=== PATIENT | female | born 1945 | race Caucasian/White ===

== ENCOUNTER 2023-08-16 22:11 | Inpatient (IN) | payer MEDICARE, OTHER ==
[~2023-08-16] VITALS: Ht 152.4 cm; Wt 77.1 kg
[2023-08-16] MEDS ORDERED: ROPI1TAB6 PO (22:51)
[2023-08-16] MEDS ORDERED: SIME80TA15 PO (22:51)
[2023-08-16] MEDS ORDERED: METO25TA6 PO (22:51)
[2023-08-16] MEDS ORDERED: CYAN100T44 PO (22:51)
[2023-08-16] MEDS ORDERED: PREG200C PO (22:51)
[2023-08-16] MEDS ORDERED: SIMV-46 PO (22:51)
[2023-08-16] MEDS ORDERED: FAMO-132 PO (22:51)
[2023-08-16] MEDS ORDERED: MAGN400O6 PO (22:51)
[2023-08-16] MEDS ORDERED: ASPI81TA31 PO (22:51)
[2023-08-16] MEDS ORDERED: LEVO88TA5 PO (22:51)
[2023-08-16] MEDS ORDERED: ALEN70TA80 PO (22:51)
[2023-08-16] MEDS ORDERED: TRAZ-257 PO (22:51)
[2023-08-16] MEDS ORDERED: MELA10TA2 PO (22:51)
[2023-08-16] MEDS ORDERED: ONDA-104 PO (22:51)
[2023-08-16] MEDS ORDERED: ROPI2TAB7 PO (22:51)
[2023-08-16] MEDS ORDERED: OXYC-128 PO (22:51)
[2023-08-16] MEDS ORDERED: OXYC1TAB12 PO (22:51)
[2023-08-16] MEDS ORDERED: SENN8.6T19 PO (22:51)
[2023-08-16] MEDS ORDERED: DULO30CA2 PO (22:51)
[2023-08-16] MEDS ORDERED: POLY17PO4 PO (22:51)
[2023-08-16] MEDS ORDERED: ASCO500C18 PO (22:51)
[2023-08-16] MEDS ORDERED: LISI-782 PO (22:51)
[2023-08-16] MEDS ORDERED: LACT10SO58 PO (22:51)
[2023-08-16 22:55] LABS: BASOPHILS # (AUTO) 0.1 K/UL (0.0-0.2); BASOPHILS % (AUTO) 1.3 % (0.0-2.0); DIFFERENTIAL COMMENT 0; EOSINOPHILS # (AUTO) 0.2 K/uL (0.0-0.7); EOSINOPHILS % (AUTO) 2.7 % (0.0-7.0); HEMOGLOBIN 13.6 g/dL (10.9-14.3); LYMPHOCYTES # (AUTO) 2.6 K/uL (0.8-4.8); LYMPHOCYTES % (AUTO) 28.1 % (20.5-51.5); MEAN CORPUSCULAR HGB CONC 32 g/dL (32.3-35.6); MEAN CORPUSCULAR VOLUME 80.6 fL (75.5-95.3); MONOCYTES % (AUTO) 10.4 % (0.0-11.0); NEUTROPHILS # (AUTO) 5.4 K/uL (1.8-8.9); NEUTROPHILS % (AUTO) 57.5 % (38.5-71.5); PLATELET COUNT (AUTO) 246 K/uL (179-408); RED BLOOD CELL COUNT(AUTO) 5.21 MIL/uL (3.63-4.92); RED CELL DISTRIBUTION WIDTH 24.4 % (12.3-17.7); WHITE BLOOD COUNT (AUTO) 9.4 K/uL (3.8-11.8)
[2023-08-16 22:57] LABS: CALCIUM 10.4 mg/dL (8.5-10.1); CARBON DIOXIDE 31 mmol/L (21-32); CHLORIDE 100 mmol/L (98-107); CREATININE 0.7 mg/dL (0.6-1.3); GLUCOSE 129 mg/dL (74-106); POTASSIUM 5.3 mmol/L (3.5-5.1); SODIUM SERUM 137 mmol/L (136-145); UREA NITROGEN, BLOOD 16 mg/dL (7-18)
[2023-08-16 23:11] LABS: ALANINE AMINOTRANSFERASE 19 U/L (14-59); ALKALINE PHOSPHATASE 30 U/L (50-136); ASPARTATE AMINOTRANSFERASE 34 U/L (15-37); BILIRUBIN,DIRECT < 0.1 mg/dL (0.0-0.2); BILIRUBIN,TOTAL 0.3 mg/dL (0.2-1.0); NT-PRO BNP 50 pg/mL (0-125); TOTAL PROTEIN, SERUM 6.8 g/dL (6.4-8.2)
[2023-08-16] MEDS ORDERED: MAG HYDROX/AL HYDROX/SIMETH 30 ML LIQUID UDC PO ONE (23:15)
[2023-08-16] MEDS ORDERED: LIDOCAINE VISCUS 2% 15 ML UDC MM ONE (23:15)
[2023-08-17] MEDS ORDERED: LIDOCAINE VISCUS 2% 15 ML UDC ONE
[2023-08-17] MEDS ORDERED: MAG HYDROX/AL HYDROX/SIMETH 30 ML LIQUID UDC ONE (00:01)
[2023-08-17] MEDS ORDERED: DEXTROSE 50% 50 ML DISP.SYRIN IV PRN (00:30)
[2023-08-17] MEDS ORDERED: MIRALAX 17 GM POWD.PACK PO PRN (00:30)
[2023-08-17] MEDS ORDERED: TRAZODONE 100 MG TABLET PO SCH ×2 (00:30→21:00)
[2023-08-17] MEDS ORDERED: ONDANSETRON 4 MG/2 ML VIAL IV PRN (00:30)
[2023-08-17] MEDS ORDERED: SIMVASTATIN 20 MG TABLET PO SCH (00:30)
[2023-08-17] MEDS ORDERED: ACETAMINOPHEN 325 MG TABLET PO PRN (00:30)
[2023-08-17] MEDS ORDERED: LEVOTHYROXINE SODIUM 88 MCG TABLET ONE (07:51)
[2023-08-17] MEDS: LEVOTHYROXINE SODIUM 88 MCG TABLET PO SCH (07:55)
[2023-08-17] MEDS: BLOOD SUGAR DIAGNOSTIC 1 EACH STRIP VI SCH ×4 (08:07→20:42)
[2023-08-17] MEDS: INSULIN REGULAR, HUMAN 300 UNIT/3 ML VIAL SQ PRN ×2 (08:16→14:04)
[2023-08-17] MEDS ORDERED: ENOXAPARIN SODIUM 40 MG/0.4 ML DISP.SYRIN SQ ONE (08:43)
[2023-08-17] MEDS ORDERED: CYANOCOBALAMIN 1,000 MCG TABLET ONE (08:43)
[2023-08-17] MEDS ORDERED: FAMOTIDINE 20 MG TABLET ONE (08:43)
[2023-08-17] MEDS ORDERED: ASCORBIC ACID 500 MG TABLET ONE (08:44)
[2023-08-17] MEDS ORDERED: ASPIRIN 81 MG TAB.CHEW ONE (08:44)
[2023-08-17] MEDS: ENOXAPARIN SODIUM 40 MG/0.4 ML DISP.SYRIN SQ SCH (08:51)
[2023-08-17] MEDS: ASPIRIN 81 MG TAB.CHEW PO SCH (08:51)
[2023-08-17] MEDS: ASCORBIC ACID 500 MG TABLET PO SCH (08:51)
[2023-08-17] MEDS: CYANOCOBALAMIN 1,000 MCG TABLET PO SCH (08:52)
[2023-08-17] MEDS: DULOXETINE 30 MG CAPSULE.DR PO SCH ×2 (08:52→17:21)
[2023-08-17] MEDS: FAMOTIDINE 20 MG TABLET PO SCH (08:52)
[2023-08-17] MEDS ORDERED: CYANOCOBALAMIN 100 MCG TABLET PO SCH (09:00)
[2023-08-17] MEDS ORDERED: SIMETHICONE 80 MG TAB.CHEW PO PRN (12:43)
[2023-08-17] MEDS: METOPROLOL TARTRATE 25 MG TABLET PO SCH (13:00)
[2023-08-17] MEDS: ropiniROLE 1 MG TABLET PO SCH ×3 (15:30→20:42)
[2023-08-17] MEDS ORDERED: OXYCODONE/APAP 5-325 MG TABLET ONE (15:31)
[2023-08-17] MEDS: OXYCODONE/APAP 5-325 MG TABLET PO PRN ×2 (15:35→20:41)
[2023-08-17] MEDS ORDERED: ropiniROLE 1 MG TABLET PO SCH (18:00)
[2023-08-17 19:21] VITALS: BP 147/48; TEMP 97.9; O2SAT 91
[2023-08-17 20:15] VITALS: BP 99/48; TEMP 98.2; O2SAT 95
[2023-08-17] MEDS ORDERED: IV NORMAL SALINE 500 ML BAG IV ONE (20:30)
[2023-08-17] MEDS: SENNOSIDES 1 TABLET PO SCH ×2 (20:39→20:41)
[2023-08-17] MEDS: SIMVASTATIN 20 MG TABLET PO SCH ×2 (20:40→20:41)
[2023-08-17] MEDS ORDERED: MELATONIN 3 MG TABLET PO SCH (21:00)
[2023-08-18 00:10] VITALS: BP 96/46; TEMP 98.3; O2SAT 95
[2023-08-18 04:10] VITALS: BP 133/56; TEMP 98.3; O2SAT 93
[2023-08-18] MEDS: LEVOTHYROXINE SODIUM 88 MCG TABLET PO SCH (06:16)
[2023-08-18 07:07] LABS: BASOPHILS # (AUTO) 0.1 K/UL (0.0-0.2); BASOPHILS % (AUTO) 1.1 % (0.0-2.0); EOSINOPHILS # (AUTO) 0.2 K/uL (0.0-0.7); EOSINOPHILS % (AUTO) 2.6 % (0.0-7.0); HEMATOCRIT 41.6 % (31.2-41.9); HEMOGLOBIN 13.3 g/dL (10.9-14.3); LYMPHOCYTES # (AUTO) 1.3 K/uL (0.8-4.8); LYMPHOCYTES % (AUTO) 20.2 % (20.5-51.5); MEAN CORPUSCULAR HEMOGLOBIN 25.7 uug (24.7-32.8); MEAN CORPUSCULAR HGB CONC 32 g/dL (32.3-35.6); MEAN CORPUSCULAR VOLUME 80.4 fL (75.5-95.3); MONOCYTES # (AUTO) 0.7 K/uL (0.1-1.30); MONOCYTES % (AUTO) 10.2 % (0.0-11.0); NEUTROPHILS # (AUTO) 4.3 K/uL (1.8-8.9); NEUTROPHILS % (AUTO) 65.9 % (38.5-71.5); PLATELET COUNT (AUTO) 229 K/uL (179-408); RED BLOOD CELL COUNT(AUTO) 5.17 MIL/uL (3.63-4.92); RED CELL DISTRIBUTION WIDTH 23.6 % (12.3-17.7); WHITE BLOOD COUNT (AUTO) 6.6 K/uL (3.8-11.8)
[2023-08-18 07:20] LABS: DIFFERENTIAL COMMENT 1
[2023-08-18 07:32] LABS: ALANINE AMINOTRANSFERASE 17 U/L (14-59); ALBUMIN 3.1 g/dL (3.4-5.0); ALKALINE PHOSPHATASE 31 U/L (50-136); ASPARTATE AMINOTRANSFERASE 11 U/L (15-37); BILIRUBIN,TOTAL 0.3 mg/dL (0.2-1.0); CALCIUM 9.4 mg/dL (8.5-10.1); CARBON DIOXIDE 30 mmol/L (21-32); CHLORIDE 104 mmol/L (98-107); CHOLESTEROL 170 mg/dL (<200); CREATININE 0.6 mg/dL (0.6-1.3); GLUCOSE 143 mg/dL (74-106); HDL CHOLESTEROL 50 mg/dL (40-60); MAGNESIUM 1.8 mg/dL (1.8-2.4); PHOSPHOROUS 3.7 mg/dL (2.5-4.9); POTASSIUM 3.7 mmol/L (3.5-5.1); SODIUM SERUM 141 mmol/L (136-145); TOTAL PROTEIN, SERUM 6.4 g/dL (6.4-8.2); TRIGLYCERIDES 192 MG/DL (30-150); UREA NITROGEN, BLOOD 11 mg/dL (7-18)
[2023-08-18] MEDS: BLOOD SUGAR DIAGNOSTIC 1 EACH STRIP VI SCH ×2 (07:40→11:51)
[2023-08-18 08:00] VITALS: BP 158/57; TEMP 98.5; O2SAT 97
[2023-08-18] MEDS: FAMOTIDINE 20 MG TABLET PO SCH (08:50)
[2023-08-18] MEDS: DULOXETINE 30 MG CAPSULE.DR PO SCH (08:50)
[2023-08-18] MEDS: ASCORBIC ACID 500 MG TABLET PO SCH (08:50)
[2023-08-18] MEDS: ASPIRIN 81 MG TAB.CHEW PO SCH (08:51)
[2023-08-18] MEDS: CYANOCOBALAMIN 1,000 MCG TABLET PO SCH (08:51)
[2023-08-18] MEDS: METOPROLOL TARTRATE 25 MG TABLET PO SCH (08:55)
[2023-08-18] MEDS: ENOXAPARIN SODIUM 40 MG/0.4 ML DISP.SYRIN SQ SCH (08:58)
[2023-08-18 10:41] VITALS: BP 124/49; TEMP 98; O2SAT 93
[2023-08-18] MEDS ORDERED: GABAPENTIN 100 MG CAPSULE PO SCH (11:45)
[2023-08-18] MEDS: OXYCODONE/APAP 5-325 MG TABLET PO PRN (12:11)
[2023-08-18] MEDS ORDERED: LISINOPRIL 5 MG TABLET PO SCH (21:00)
[2023-08-22] MEDS ORDERED: ALENDRONATE SODIUM 70 MG TABLET PO SCH (07:00)
== END 2023-08-18 15:40 | DRG 303 ==
LOC: ER 22:17 → TRANSITION 08-17 07:00 → UNDOADMIN 08-17 07:00 → TELE3 08-17 17:30 → MEDSURG3 08-18 08:35
PROVIDERS: ADMIT Nurse Practitioner Acute Care; ATTEND Nurse Practitioner Acute Care
DX: I25.110 Atherosclerotic heart disease of native coronary artery with unstable angina pectoris (principal); E44.1 Mild protein-calorie malnutrition; E88.09 Other disorders of plasma-protein metabolism, not elsewhere classified; F17.210 Nicotine dependence, cigarettes, uncomplicated; Z68.33 Body mass index [BMI] 33.0-33.9, adult; E03.9 Hypothyroidism, unspecified; E11.9 Type 2 diabetes mellitus without complications; E66.9 Obesity, unspecified; E78.5 Hyperlipidemia, unspecified; E87.5 Hyperkalemia; I10 Essential (primary) hypertension; K44.9 Diaphragmatic hernia without obstruction or gangrene; M81.0 Age-related osteoporosis without current pathological fracture; K21.9 Gastro-esophageal reflux disease without esophagitis; Z71.6 Tobacco abuse counseling
CPT/HCPCS: 36415; 71045; 83735; 84100; 84484; 85025; 93005; 93307; A4663; G0378; J1650; J1815